=== PATIENT | male | born 1990 | race Two or more races ===

== ENCOUNTER 2019-03-04 00:23 | Emergency (ER) | payer SELFPAY ==
[~2019-03-04] VITALS: Ht 172.7 cm; Wt 86.2 kg
--- NOTE | 2019-03-04 00:44 | Emergency Room Report ---
History of Present Illness General Chief Complaint: General Complaint Source: Patient Present Illness HPI Patient is a 28-year-old male presented after increased hiccups for the past 4 hours. Patient reports having recent alcohol use. He denies any abdominal pain. He reports having some discomfort is in his chest due to hiccups. He denies any fever. He had not been having hematemesis or bloody stools. He reports having had approximately 6-8 beers earlier in the day Allergies: Coded Allergies: No Known Allergies (Unverified , 03/04/19) Patient History Past Medical History: see triage record Reviewed Nursing Documentation: PMH: Agreed; PSxH: Agreed Nursing Documentation-PMH Past Medical History: No Stated History Review of Systems All Other Systems: negative except mentioned in HPI Physical Exam Vital Signs Date Time Temp Pulse Resp B/P (MAP) Pulse Ox O2 Delivery O2 Flow Rate FiO2 03/04/19 00:31 98.1 109 16 147/92 (110) 94 Room Air Sp02 EP Interpretation: reviewed, normal General Appearance: normal inspection, well appearing, no apparent distress, alert, GCS 15 Head: atraumatic ENT: normal ENT inspection, hearing grossly normal, normal voice Neck: normal inspection, full range of motion, supple, no bony tend Respiratory: normal inspection, lungs clear, normal breath sounds, no respiratory distress, no retraction, no wheezing Cardiovascular #1: regular rate, rhythm, no edema Gastrointestinal: normal inspection, normal bowel sounds, non tender, soft, no guarding, no hernia Genitourinary: no CVA tenderness Musculoskeletal: normal inspection, back normal, normal range of motion Neurologic: normal inspection, alert, oriented x3, responsive, speech normal Psychiatric: normal inspection, judgement/insight normal, mood/affect normal Skin: normal inspection, normal color, no rash Medical Decision Making Diagnostic Impression: Primary Impression: Hiccups ER Course Patient presented for hiccups. Differential diagnosis include was not limited to alcohol abuse, thyroid disease, pneumonia, among others. Patient has a benign exam and does not appear to require any further imaging or laboratory testing at this timePatient was given IM Thorazine with improvement in his hiccups. Patient stated felt better. Patient appears to be stable for outpatient management he was advised alcohol cessation. He is advised to return if he had any worsening condition, chest pain or other concerns. Last Vital Signs Date Time Temp Pulse Resp B/P (MAP) Pulse Ox O2 Delivery O2 Flow Rate FiO2 03/04/19 00:31 98.1 109 16 147/92 (110) 94 Room Air Status: improved Disposition: HOME, SELF-CARE Condition: Stable Scripts Metoclopramide Hcl* (REGLAN*) 10 Mg Tablet 10 MG ORAL THREE TIMES A DAY for hiccups, #10 TAB Prov: Addison Rios MD 03/04/19 Addison Rios MD Mar 04, 2019 00:44
[2019-03-04 01:30] VITALS: BP 136/83
--- NOTE | 2019-03-04 01:30 | NUR ---
ED Nurse Note: RECIEVED PT FROM HOME, HERE WITH C/O HICCUPS SINCE AM, NON-STOP, PT HAS HAD IN PAST BUT IT STOPPED ON ITS OWN, PT DENIES ANY OTHR COMPLAINTS, MEDICATED ORDERED AND STATES FEELS BETTER, PT IS BEING D/C TO HOME, WITH SPOUSE, AWAKE AND ALERT, AMBULATORY, GIVEN F/U INFO AND AFTER CARE INSTRUCTIONS AND RE-VERBALIZES PROPER MEDICATION ADMINISTRATION AND S/S TO MONITOR FOR, PT ARMBAND REMOVED, NAD NOTED DURING D/C TO HOME.
[2019-03-04] MEDS ORDERED: REGLAN10 MG ORAL (01:34)
[2019-03-04 01:45] VITALS: BP 136/83
== END 2019-03-04 01:40 | disposition home or self-care (01) ==
LOC: EMR 00:45
DX: R06.6 Hiccough (principal)
CPT/HCPCS: 96372; 99283; J3230